=== PATIENT | female | born 1940 | race Caucasian/White ===

== ENCOUNTER 2017-11-06 19:27 | Emergency (ER) | payer OTHER ==
[~2017-11-06 19:27] MED LIST: AMLO5TAB7 PO; ASPI-605 PO; ATEN50TA PO; ATOR10TA GT; LOSA1TAB36 PO
[2017-11-06] MEDS ORDERED: LIDOCAINE 1%-EPI 1:100,000 20 ML VIAL ONE (20:11)
[2017-11-06] MEDS ORDERED: LIDOCAINE 1%-EPI 1:100,000 50 ML VIAL IJ ONE (20:30)
[2017-11-06] MEDS ORDERED: HYDROCODONE/APAP 5/325MG 1 EACH TABLET PO ONE (20:30)
[2017-11-06] MEDS ORDERED: HYDROCODONE/APAP 5/325MG 1 EACH TABLET ONE (20:53)
== END 2017-11-06 22:02 | disposition home or self-care (01) ==
DX: S01.511A Laceration without foreign body of lip, initial encounter (principal); S09.8XXA Other specified injuries of head, initial encounter; I10 Essential (primary) hypertension; K21.9 Gastro-esophageal reflux disease without esophagitis; E11.9 Type 2 diabetes mellitus without complications; Z86.73 Personal history of transient ischemic attack (TIA), and cerebral infarction without residual deficits; Z90.89 Acquired absence of other organs; Z79.82 Long term (current) use of aspirin; W01.0XXA Fall on same level from slipping, tripping and stumbling without subsequent striking against object, initial encounter; Y93.89 Activity, other specified; Y92.89 Other specified places as the place of occurrence of the external cause; Y99.8 Other external cause status

== ENCOUNTER 2019-05-13 16:55 | Inpatient (IN) | payer OTHER ==
[~2019-05-13] VITALS: Ht 147.3 cm; Wt 60.8 kg
[~2019-05-13 16:55] MED LIST changes: -AMLO5TAB7 PO; +AMLO5TAB9 PO
--- NOTE | 2019-05-13 17:00 | NUR ---
BIB [facility] FOR CHEST TIGHTNESS, L ARM PAIN, SOB SINCE YESTERDAY, NAUSEA AND DIZZINESS. TOOK VERTIGO MEDICATION AT 4PM. TOOK 2 BABY ASPIRIN (ONE IN THE MORNING AND ONE IN THE AFTERNOON). TO ER BED 10, HOOKED TO MONITOR, CHANGED TO HOSPITAL GOWN, AWAITING MD SMITH
--- NOTE | 2019-05-13 17:30 | NUR ---
DR SKINNER AT BEDSIDE
[2019-05-13] MEDS ORDERED: ACETAMINOPHEN ES 500 MG TABLET ONE (17:38)
[2019-05-13 17:51] LABS: BASOPHILS % (AUTO) 0.4 % (0.0-2.0); EOSINOPHILS % (AUTO) 1.9 % (0.0-6.0); HEMATOCRIT 39 % (33-45); HEMOGLOBIN 13.5 g/dL (11.5-14.8); LYMPHOCYTES # (AUTO) 2.6 /CMM (0.8-4.8); LYMPHOCYTES % (AUTO) 26.5 % (20.0-44.0); MEAN CORPUSCULAR HGB CONC 34 g/dl (31.0-36.0); MEAN CORPUSCULAR VOLUME 85 fL (82-100); MONOCYTES # (AUTO) 0.6 /CMM (0.1-1.30); MONOCYTES % (AUTO) 6.4 % (2.0-12.0); NEUTROPHILS # (AUTO) 6.3 /CMM (1.8-8.9); NEUTROPHILS % (AUTO) 64.8 % (43.0-81.0); PLATELET COUNT (AUTO) 207 /CMM (150-450); RED BLOOD CELL COUNT(AUTO) 4.61 MIL/uL (4.0-5.2); WHITE BLOOD COUNT (AUTO) 9.8 K/uL (4.3-11.0)
--- NOTE | 2019-05-13 17:52 | NUR ---
POWER GRADER OPERATOR AT BEDSIDE
[2019-05-13] MEDS ORDERED: OMEP20TA5 PO (17:53)
[2019-05-13] MEDS ORDERED: METF-440 PO (17:53)
[2019-05-13] MEDS ORDERED: ACETAMINOPHEN ES 500 MG TABLET PO ONE (18:00)
[2019-05-13 18:04] LABS: CALCIUM, SERUM 9.3 mg/dL (8.5-10.1); POTASSIUM 3.9 mmol/L (3.5-5.1)
[2019-05-13] MEDS ORDERED: ASPIRIN 81 MG TAB.CHEW PO ONE (18:30)
[2019-05-13] MEDS ORDERED: ASPIRIN 81 MG TAB.CHEW ONE (18:44)
--- NOTE | 2019-05-13 19:24 | NUR ---
PT RECEIVED IN BED READING IN HER IPAD. AAOX4. NO RESP DISTRESS NOTED. DAUGHTER AT BEDSIDE
--- NOTE | 2019-05-13 19:38 | NUR ---
PT C/O L CHEST PAIN 09/12 RADIATING TO THE L SHOUDLER. MD MADE AWARE. EKG ORDER RECEIVED NOTED AND CARRIED OUT
--- NOTE | 2019-05-13 19:41 | NUR ---
PT NOTED 94-95% O2 SAT ON RA. PLACED ON O2 VIA NC. MADE AWARE AND APPROVED
--- NOTE | 2019-05-13 20:00 | NUR ---
NURSING SUP GAVE BED 106.
--- NOTE | 2019-05-13 20:09 | NUR ---
DENNIS SOLROIO [facility] CALLED. GIVING VERBAL AUTH.
--- NOTE | 2019-05-13 20:19 | NUR ---
PAINT LINE OPERATOR AT BEDSIDE FOR TROPONIN DRAW
--- NOTE | 2019-05-13 20:37 | NUR ---
RECEIVED TELEPHONE ORDERS FOR PT ADMISSION.
--- NOTE | 2019-05-13 21:05 | NUR ---
REPORT GIVEN TO MARLA BONNER.
--- NOTE | 2019-05-13 21:22 | NUR ---
patient sent to room 106-T to Lisbeth BONNER for GERRY.
[2019-05-13] MEDS ORDERED: IV NS 0.9% 1,000 ML IV ONE (21:30)
--- NOTE | 2019-05-13 21:50 | NUR ---
ADJUNCT PHYSICS INSTRUCTOR OPENING NOTE RECEIVED REPORT BY ANTOINETTE IN ER. RECEIVED PATIENT A/O X4. ARRIVED IN [facility] WITH NO SIGN OR ANY DISTRESS AT THE MOMENT. PATIENT ON THE MONITOR IS SINUS RHYTHM WITH HR OF 60"S.PATIENT WAS ABLE TO AMBULATE FROM THE RNEY TO THE BED WITH NO COMPLICATIONS. SKIN IS INTACT. NO SIGN OF CHEST PAIN AT THE MOMENT. PATIENT HAS A RAC #20 S/L PATENT AND FLUSHING WELL. LUNGS ARE CLEAR AND BOWEL SOUNDS ARE PRESENT. PATIENT HAS BATHROOM PRIVILEGES WITH ASSISTANCE IF NEEDED. DAUGHTER AT BEDSIDE AND ALL SAFETY PRECAUTIONS HAVE BEEN APPLIED/ WILL CONTINUE TO MONITOR.
[2019-05-13] MEDS ORDERED: *INSULIN REGULAR(HUMULIN R)HUM 100 UNIT/ML VIAL SQ PRN (22:00)
[2019-05-13] MEDS ORDERED: DEXTROSE 50%-WATER 50 ML DISP.SYRIN IV PRN (22:00)
[2019-05-13] MEDS ORDERED: ZOLPIDEM TARTRATE 5 MG TABLET PO PRN (22:00)
--- NOTE | 2019-05-13 22:02 | NUR ---
PILE DRIVING TECHNICIAN NOTE CALLED DR. BARRIOS TO CONFIRM DX. AND DIET. CONFIRMED PATIENT'S DX IS CHEST PAIN AND DIET IS NPO XMEDS.
[2019-05-13 22:20] VITALS: BP 110/60
[2019-05-13] MEDS: ATORVASTATIN 10 MG TABLET PO SCH (22:20)
[2019-05-13] MEDS: ACETAMINOPHEN 325 MG TABLET PO PRN (22:20)
[2019-05-13] MEDS: BLOOD SUGAR DIAGNOSTIC 1 EACH STRIP VI SCH (22:26)
[2019-05-14] VITALS: BP 135/83
--- NOTE | 2019-05-14 01:18 | NUR ---
MACHINE RIGGER NOTE RECEIVED CRITICAL LAB FROM [facility] FOR TROPONIN. ELEVATED TO 1.219. DR. BARRIOS MADE AWARE
[2019-05-14 04:00] VITALS: BP 136/83
[2019-05-14 07:01] LABS: BASOPHILS % (AUTO) 0.6 % (0.0-2.0); HEMATOCRIT 38 % (33-45); HEMOGLOBIN 12.9 g/dL (11.5-14.8); LYMPHOCYTES # (AUTO) 2.3 /CMM (0.8-4.8); LYMPHOCYTES % (AUTO) 40.4 % (20.0-44.0); MEAN CORPUSCULAR HGB CONC 34 g/dl (31.0-36.0); MEAN CORPUSCULAR VOLUME 85 fL (82-100); MONOCYTES # (AUTO) 0.4 /CMM (0.1-1.30); MONOCYTES % (AUTO) 6.8 % (2.0-12.0); NEUTROPHILS # (AUTO) 2.9 /CMM (1.8-8.9); NEUTROPHILS % (AUTO) 49.2 % (43.0-81.0); PLATELET COUNT (AUTO) 166 /CMM (150-450); RED BLOOD CELL COUNT(AUTO) 4.43 MIL/uL (4.0-5.2); WHITE BLOOD COUNT (AUTO) 5.8 K/uL (4.3-11.0)
[2019-05-14 07:09] LABS: CALCIUM, SERUM 8.6 mg/dL (8.5-10.1); POTASSIUM 3.9 mmol/L (3.5-5.1)
--- NOTE | 2019-05-14 07:13 | NUR ---
TESTER COMPRESSED GASES CLOSING NOTE PATIENT IN BED WITH NO DISTRESS AND NO COMPLAINTS OF ANY CHEST PAIN. PATIENT HAS ON 2L OF O2 WITH 98% SAT. ALL SAFETY PRECAUTIONS APPLIED. ENDORSED PATIENT TO MORNING SHIFT NURSE FOR CONTINUATIONS OF CARE.
[2019-05-14] MEDS ORDERED: OMEPRAZOLE 20 MG CAPSULE.DR PO SCH (07:30)
[2019-05-14] MEDS: PANTOPRAZOLE 40 MG TABLET.DR PO SCH (07:39)
[2019-05-14] MEDS: BLOOD SUGAR DIAGNOSTIC 1 EACH STRIP VI SCH ×4 (07:39→22:22)
[2019-05-14 08:00] VITALS: BP 150/90
[2019-05-14] MEDS: ASPIRIN 81 MG TAB.CHEW PO SCH (08:27)
[2019-05-14] MEDS: AMLODIPINE BESYLATE 5 MG TABLET PO SCH (08:28)
[2019-05-14] MEDS ORDERED: HEPARIN INFUSION/D5W 500 ML IV PRN (08:30)
[2019-05-14] MEDS: ATENOLOL 50 MG TABLET PO SCH (08:39)
[2019-05-14] MEDS ORDERED: LOSARTAN POTASSIUM 50 MG TABLET PO SCH (09:00)
--- NOTE | 2019-05-14 09:22 | NUR ---
RN NOTE 0715: Received patient, awake, A/Ox4. No c/o chest pain at this time. With RAC PIV intact, IVF infusing as ordered. 0830: Trop level 1.470, made Dr. Major aware, with order to inform Dr. Gonzalez, DC CTCA and will do cardiac cath on Thursday. 899: Dr. Gonzalez in the unit, made aware for order of Heparin drip. 919: S/E by Dr. Gonzalez, with order to DC Heparin and will do Lovenox instead.
[2019-05-14] MEDS ORDERED: HEPARIN SODIUM, PORCINE 5000 UNITS/1 ML VIAL IV ONE (09:30)
[2019-05-14] MEDS: VALSARTAN 80 MG TABLET PO SCH (09:51)
[2019-05-14] MEDS ORDERED: ENOXAPARIN SODIUM 60 MG/0.6 ML DISP.SYRIN SQ SCH (11:30)
[2019-05-14 12:00] VITALS: BP 154/95
[2019-05-14 16:00] VITALS: BP 144/86
[2019-05-14] MEDS: ACETAMINOPHEN 325 MG TABLET PO PRN (17:13)
--- NOTE | 2019-05-14 18:38 | NUR ---
RN NOTE With episode of 2/10 CP at 1750, Tylenol given per request, offered other pain meds but she said she will try Tylenol first. Reassessed at 1640, patient said no more CP.
--- NOTE | 2019-05-14 19:10 | NUR ---
RN OPENING NOTES: PATIENT AWAKE AND VERBALLY RESPONSIVE. A&OX4. NO RESPIRATORY DISTRESS. NO C/O CHEST PAIN AT THIS TIME. ON DELIVERER OUTSIDE SHOWING SR, HR 70s. (R) AC #20 INTACT, PATENT, AND FLUSHING WELL. SALINE LOCKED. SAFETY PRECAUTIONS IMPLEMENTED. BED LOCKED AND IN LOWEST POSITION. CALL LIGHT WITHIN REACH. WILL CONT. TO MONITOR.
[2019-05-14 20:00] VITALS: BP 110/75
[2019-05-14] MEDS: ATORVASTATIN 10 MG TABLET PO SCH (22:11)
[2019-05-15] VITALS: BP_SYST 135; BP_SYST 138; BP_DIAS 76; BP_DIAS 90
[2019-05-15 04:00] VITALS: BP 140/81
--- NOTE | 2019-05-15 07:00 | NUR ---
MIXING MACHINE FEEDER OPENING NOTE RECEIVED PATIENT A/O X4. ON ROOM AIR, NO SIGN OF RESPIRATORY / CARDIAC DISTRESS OR SOB NOTED. PATIENT ON THE MONITOR IS SINUS RHYTHM. PATIENT WAS ABLE TO AMBULATE TO THE BATHROOM. NO COMPLAIN OF CHEST PAIN AT THE MOMENT. PATIENT HAS A RAC #20 S/L PATENT AND FLUSHING WELL. ALL SAFETY PRECAUTIONS IN PLACE, BED LOCKED AND LOW, SIDE RAILS UP X2, CALL LIGHT WITHIN REACH. WILL CONTINUE TO MONITOR.
--- NOTE | 2019-05-15 07:00 | NUR ---
RN CLOSING NOTES: PATIENT AWAKE AND VERBALLY RESPONSIVE. NO RESPIRATORY DISTRESS. NO C/O CHEST PAIN. REQUESTING FOR PRUNE JUICE WITH BREAKFAST AND SHOWER TODAY. ENDORSED TO AM SHIFT NURSE FOR CONTINUITY OF CARE.
[2019-05-15 07:15] LABS: BASOPHILS # (AUTO) 0.1 /CMM (0.0-0.2); BASOPHILS % (AUTO) 0.8 % (0.0-2.0); EOSINOPHILS % (AUTO) 2.6 % (0.0-6.0); HEMATOCRIT 38 % (33-45); HEMOGLOBIN 12.9 g/dL (11.5-14.8); LYMPHOCYTES # (AUTO) 2.2 /CMM (0.8-4.8); LYMPHOCYTES % (AUTO) 35.5 % (20.0-44.0); MEAN CORPUSCULAR HGB CONC 34 g/dl (31.0-36.0); MEAN CORPUSCULAR VOLUME 85 fL (82-100); MONOCYTES # (AUTO) 0.4 /CMM (0.1-1.30); MONOCYTES % (AUTO) 6.9 % (2.0-12.0); NEUTROPHILS # (AUTO) 3.4 /CMM (1.8-8.9); NEUTROPHILS % (AUTO) 54.2 % (43.0-81.0); PLATELET COUNT (AUTO) 183 /CMM (150-450); RED BLOOD CELL COUNT(AUTO) 4.48 MIL/uL (4.0-5.2); WHITE BLOOD COUNT (AUTO) 6.3 K/uL (4.3-11.0)
--- NOTE | 2019-05-15 07:25 | NUR ---
RECEIVED CALL FROM LAB. TROPONIN 1.266 (TRENDING DOWN). CHARGE NURSE MADE AWARE. ACCORDING TH THE CHARGE NURSE SINCE IT IS TRENDING DOWN, THERE IS NO NEED TO CALL DOCTOR.
[2019-05-15 07:40] LABS: ALBUMIN 3.3 g/dL (3.4-5.0); BILIRUBIN,TOTAL 0.6 mg/dL (0.2-1.0); CREATININE 1.2 mg/dL (0.6-1.3); MAGNESIUM 1.6 mg/dL (1.8-2.4); PHOSPHORUS 4.2 mg/dL (2.5-4.9); POTASSIUM 3.6 mmol/L (3.5-5.1); TOTAL PROTEIN, SERUM 6.6 g/dL (6.4-8.2)
[2019-05-15 08:00] VITALS: BP 151/90
[2019-05-15] MEDS: BLOOD SUGAR DIAGNOSTIC 1 EACH STRIP VI SCH ×4 (08:01→21:22)
[2019-05-15] MEDS: VALSARTAN 80 MG TABLET PO SCH (08:20)
[2019-05-15] MEDS: PANTOPRAZOLE 40 MG TABLET.DR PO SCH (08:20)
[2019-05-15] MEDS: ATENOLOL 50 MG TABLET PO SCH (08:21)
[2019-05-15] MEDS: ASPIRIN 81 MG TAB.CHEW PO SCH (08:22)
[2019-05-15] MEDS: AMLODIPINE BESYLATE 5 MG TABLET PO SCH (08:22)
[2019-05-15] MEDS ORDERED: ENOXAPARIN SODIUM 60 MG/0.6 ML DISP.SYRIN SQ SCH (10:00)
[2019-05-15] MEDS: Magnesium 1GM/D5W 100ML PREMIX 100 ML IV SCH ×2 (10:02→10:51)
--- NOTE | 2019-05-15 11:35 | NUR ---
DR MANCILLA AT BEDSIDE. PATIENT WILL HAVE CATH TOMORROW 05/16/19 AT NOON. HOLD LOVENOX AND METFORMIN ON Thursday05/16/19.
[2019-05-15] MEDS: ENOXAPARIN SODIUM 60 MG/0.6 ML DISP.SYRIN SQ SCH (11:54)
[2019-05-15 12:00] VITALS: BP 122/71
[2019-05-15] MEDS: INSULIN REGULAR, HUMAN 100 UNIT/ML 3 ML VIAL SQ PRN (12:42)
--- NOTE | 2019-05-15 13:56 | NUR ---
PATIENT'S DAUGHTER AT BEDSIDE AND WAS INFORMED THAT HER MOM WILL HAVE CATH PROCEDURE TOMORROW AT NOON.
[2019-05-15 16:00] VITALS: BP 117/72
--- NOTE | 2019-05-15 18:50 | NUR ---
RN CLOSING NOTES: PT A/OX4, ON ROOM AIR, NO SIGN OF RESPIRATORY / CARDIAC DISTRESS OR SOB AT THIS TIME. NO C/O CHEST PAIN. ON TELE MONITOR ST 110. NO SIGNIFICANT CHANGE DURING THE SHIFT. WILL BE NPO MIDNIGHT FOR CATH PROCEDURE TOMORROW MORNING. WILL ENDORSE TO PM SHIFT NURSE FOR CONTINUITY OF CARE. Addendum: 05/15/19 at 1902 by EDYTA CURRY RN PATIENT ON TELE MONITOR SR 63.
--- NOTE | 2019-05-15 19:30 | NUR ---
TANKERMAN OPENING NOTE RECEIVED IN BED. A/O X4. ON OXYGEN 2OL/MIN VIA NASAL CANNULA, RESPIRATIONS ARE EVEN AN DUNLABORED. NO S/S SOB NOTED. DENIES PAIN AT THIS TIME. EXTERNAL TELE MONITOR READS SR 62. IN NO APPARENT DISTRESS. IV ACCESS IN LAC PATENT ANSD SL. BED IS LOW AN DLOCKED, HOB ELEVATED 60 DEGREE, SIDE RAILS UP X2. CALL [facility] WITHIN REACH,. WILL CONT TO MONITOR.
[2019-05-15 20:00] VITALS: BP 120/75
[2019-05-15] MEDS: ATORVASTATIN 10 MG TABLET PO SCH (21:21)
[2019-05-15] MEDS: IV NS 0.9% 1,000 ML IV PRN (21:22)
[2019-05-16] VITALS (23 sets, daily range): BP systolic 114–180; BP diastolic 39–100
[2019-05-16] MEDS ORDERED: MORPHINE SULFATE INJ 2 MG/ML DISP.SYRIN IVP ONE (05:00)
--- NOTE | 2019-05-16 05:00 | NUR ---
PREFORM PLATE MAKER NOTE PATIENT EXPERIENCED CHEST PAIN 2/10 RADIATING TO LEFT SHOULDER AND BACK. BP 158/87 HR 60. NOTIFIED MD, TELE PHONE ORDER: 1 MG MORPHINE IVP, ONE TIME NOW. ORDER EAD BACK, NOTED AND CARRIED OUT.
[2019-05-16 06:19] LABS: BASOPHILS % (AUTO) 0.7 % (0.0-2.0); EOSINOPHILS % (AUTO) 3.5 % (0.0-6.0); HEMATOCRIT 38 % (33-45); LYMPHOCYTES # (AUTO) 2.1 /CMM (0.8-4.8); LYMPHOCYTES % (AUTO) 33.2 % (20.0-44.0); MEAN CORPUSCULAR HGB CONC 34 g/dl (31.0-36.0); MEAN CORPUSCULAR VOLUME 85 fL (82-100); MONOCYTES # (AUTO) 0.5 /CMM (0.1-1.30); MONOCYTES % (AUTO) 8.4 % (2.0-12.0); NEUTROPHILS # (AUTO) 3.4 /CMM (1.8-8.9); NEUTROPHILS % (AUTO) 54.2 % (43.0-81.0); PLATELET COUNT (AUTO) 177 /CMM (150-450); RED BLOOD CELL COUNT(AUTO) 4.49 MIL/uL (4.0-5.2); WHITE BLOOD COUNT (AUTO) 6.2 K/uL (4.3-11.0)
[2019-05-16 06:27] LABS: ALBUMIN 3.3 g/dL (3.4-5.0); BILIRUBIN,TOTAL 0.5 mg/dL (0.2-1.0); CALCIUM, SERUM 8.8 mg/dL (8.5-10.1); MAGNESIUM 1.8 mg/dL (1.8-2.4); POTASSIUM 3.6 mmol/L (3.5-5.1); TOTAL PROTEIN, SERUM 6.8 g/dL (6.4-8.2)
--- NOTE | 2019-05-16 06:57 | NUR ---
ENTREPRENEURIAL FINANCE PROFESSOR NOTE LAB CALLED TO REPORT CRITICAL FOR TROPONIN LEVEL 0.913. WILL NOTIFY
--- NOTE | 2019-05-16 07:00 | NUR ---
OVERHEAD CRANE INSPECTOR CLOSING NOTE PT IN BED. A/O X4. ON OXYGEN 2OL/MIN VIA NASAL CANNULA, RESPIRATIONS ARE EVEN AN DUNLABORED. NO S/S SOB NOTED. MANAGED CHEST PAIN WITH 1MG MORPHOINE, PATIENT STATES NO MORE PAIN. EXTERNAL TELE MONITOR READS SR 62 - SB 46. NO DISTRESS NOTED. IV ACCESS IN LAC RUNNING NS @100. BED IS LOW AN DLOCKED, HOB ELEVATED 60 DEGREE, SIDE RAILS UP X2. CALL [facility] WITHIN REACH,. WILL ENDORSE TO NEXT SHIFT
--- NOTE | 2019-05-16 07:10 | NUR ---
TALENT DEVELOPMENT DIRECTOR OPENING NOTE RECEIVED PATIENT A/O X4. ON ROOM AIR, NO SIGN OF RESPIRATORY / CARDIAC DISTRESS OR SOB NOTED. PATIENT ON THE MONITOR IS SINUS RHYTHM 87. NO COMPLAIN OF CHEST PAIN AT THE MOMENT. PATIENT HAS A RAC #20 S/L PATENT AND FLUSHING WELL. NPO SINCE MIDNIGHT FOR CATH PROCEDURE. ALL SAFETY PRECAUTIONS IN PLACE, BED LOCKED AND LOW, SIDE RAILS UP X2, CALL LIGHT WITHIN REACH. WILL CONTINUE TO MONITOR.
[2019-05-16] MEDS: PANTOPRAZOLE 40 MG TABLET.DR PO SCH ×2 (07:30→22:25)
[2019-05-16] MEDS: BLOOD SUGAR DIAGNOSTIC 1 EACH STRIP VI SCH ×4 (08:05→21:42)
[2019-05-16] MEDS: AMLODIPINE BESYLATE 5 MG TABLET PO SCH (09:00)
[2019-05-16] MEDS: ENOXAPARIN SODIUM 60 MG/0.6 ML DISP.SYRIN SQ SCH (09:00)
[2019-05-16] MEDS: ATENOLOL 50 MG TABLET PO SCH (09:00)
[2019-05-16] MEDS: VALSARTAN 80 MG TABLET PO SCH (09:00)
[2019-05-16] MEDS: ASPIRIN 81 MG TAB.CHEW PO SCH (09:00)
--- NOTE | 2019-05-16 09:00 | NUR ---
PATIENT WILL HAVE CATH AT NOON. NPO SINCE MIDNIGHT, MORNING MEDS HOLD.
[2019-05-16] MEDS ORDERED: IV NS 0.9% 50 ML IV ONE (11:05)
[2019-05-16] MEDS ORDERED: IV NS 0.9% 1,000 ML ONE (11:05)
[2019-05-16] MEDS ORDERED: IV SET PRIMARY PUMP SET 1 EA INFUS.SET MC ONE (11:05)
[2019-05-16] MEDS ORDERED: LIDOCAINE HCL/PF 1% 30 ML SDV ONE (11:06)
[2019-05-16] MEDS ORDERED: IODIXANOL 150 ML IV ONE (11:06)
[2019-05-16] MEDS ORDERED: NITROGLYCERIN ICAR 1,000 MCG/10 ML VIAL ICAR ONE (11:06)
[2019-05-16] MEDS ORDERED: VERAPAMIL HCL IV 5 MG/2 ML VIAL ONE (11:06)
--- NOTE | 2019-05-16 11:39 | NUR ---
patient taken to the clinical laboratory director. vs table upon transfer.
[2019-05-16] MEDS ORDERED: HEPARIN SODIUM, PORCINE 5000 UNITS/1 ML VIAL ONE (11:53)
[2019-05-16] MEDS ORDERED: HEPARIN SODIUM, PORCINE 1,000 UNIT/ML VIAL ONE (11:59)
[2019-05-16] MEDS ORDERED: MIDAZOLAM HCL 2 MG/2ML VIAL ONE (12:02)
--- NOTE | 2019-05-16 12:11 | NUR ---
PATIENT TAKEN TO THE ELECTRONIC DRAFTER. NO ACCU CHECK AT THIS TIME.
[2019-05-16] MEDS ORDERED: FENTANYL PF 100MCG/2ML AMPUL ONE (12:36)
--- NOTE | 2019-05-16 13:41 | NUR ---
GOT A CALL FROM RIVER RAFTING GUIDE. PATIENT WAS TRANSFERRED TO THE ICU ROOM #258. BELONGING WILL BE SEND THERE WITH TODD ALEJANDRO.
--- NOTE | 2019-05-16 13:49 | NUR ---
Patient admitted from general laborer. Alert and oriented x 4. Anxious. On RA. O2 sat 96%. SR no ectopy on diagnostic cardiac sonographer. Right wrist TR band compression device on and aligned with green marker balloon 12 inflated, site clean and dry. No signs of bleeding nor hematoma noted. Patient moves fingers. Denies numbness and tingling. With strong left radial pulse on palpation. With left groin (femoral) dry and intact, pulse intact. 0.9% NS @ 100 ml/hr infusing well to the right upper arm PIV line, site no signs of phlebitis/infiltration.
--- NOTE | 2019-05-16 17:00 | NUR ---
Left wrist TR band supposed to be taken off after balloon totally deflated 2 ml every minutes 15 minutes interval, but slight bleeding noted on the site, balloon reinflated with some air. Will continue to observe and deflate air per protocol.
--- NOTE | 2019-05-16 18:37 | NUR ---
Left wrist TR band removed and site applied with Tegaderm. No bleeding noted. With slight bruising noted. IVF 0.9% NS discontinued. Saline locks right upper arm and left AC intact and patent, sites no phlebitis/infiltration noted. Right femoral dressing dry and intact. Pulses intact. SR on the monitor. VS within normal limits. Latest blood sugar 131 mg/dl. Snacks served. Patient awake and alert x 4 but very anxious. Questions answered and plan of care explained, patient verbalized understanding.
--- NOTE | 2019-05-16 19:30 | NUR ---
OIL PROCESSING TECHNICIAN INITIAL SHIFT NOTES RECEIVED PATIENT IN BED, AWAKE, ALERT AND ORIENTED X4, ABLE TO VERBALIZE NEEDS. BREATHING EVEN AND NONLABORED, TOLERATING ROOM AIR WELL, SPO2 WNL, NO S/S OF RESPIRATORY OR ACUTE DISTRESS AT THIS TIME. DENIES ANY CHEST PAIN OR DISCOMFORT. BEDSIDE TELE READS SINUS RHYTHM, HR 72 BPM. LEFT WRIST WITH TEGADERM DRESSING THAT IS DRY AND INTACT, S/P TR BAND. RIGHT FEMORAL DRESSING INTACT, NO BLEEDING NOTED AT SITE. PLAN OF CARE DISCUSSED WITH THE PATIENT, WHOM VERBALIZES UNDERSTANDING AT THIS TIME. WILL CLOSELY MONITOR THE PATIENT
--- NOTE | 2019-05-16 20:25 | NUR ---
TWINE REELING MACHINE OPERATOR NOTES RECEIVED CALL FROM BIN SAMSON CM, REGARDING TRANSFER TO [facility], ROOM 607-A. [phone]. AMBULANCE, [place], ETA 2130
--- NOTE | 2019-05-16 20:29 | NUR ---
SKULL CHOPPER NOTES REQUEST FOR COPIES OF IMAGING MADE, RADIOLOGY DEPT CALLED
--- NOTE | 2019-05-16 20:45 | NUR ---
BRIDGE CLUB MANAGER NOTES [facility] PHONE NUMBER GIVEN TO PATIENT'S DAUGHTER YOKO PER REQUEST.
--- NOTE | 2019-05-16 21:07 | NUR ---
BAKER NOTES RECEIVED CALL FROM BIN SAMSON CM. [phone]. PER BIN, TRANSFER WILL BE CANCELED FOR TONIGHT, PATIENT NO LONGER GOING TO [facility], AND WILL ATTEMPT TRANSFER TO [facility] SOMETIME TOMORROW, 05/17/19. CHARGE NURSE NOTIFIED, BREAKFAST AND ROOM ATTENDANT NOTIFIED, PATIENT AND GRANDSON AWARE. WILL CONTINUE TO CLOSELY MONITOR. Addendum: 05/17/19 at 0213 by CAROLYN MORTON RN ADDENDUM TRANSFER HELD DUE TO PATIENT AND FAMILY REFUSAL FOR [facility]. [facility] ONLY
--- NOTE | 2019-05-16 21:18 | NUR ---
CONSERVATION SPECIALIST NOTES CALLED AND SPOKE TO DR BARRIOS REGARDING LATEST UPDATE WITH TRANSFER , HELD AT THIS TIME PER PATIENT AND FAMILY REQUEST, WHOM REQUEST TO BE TRANSFERRED TO [facility]. RISKS AND CONSEQUENCES EXPLAINED IN DETAIL TO PATIENT AND FAMILY MEMBERS, WHOM VERBALIZE UNDERSTANDING, BUT STILL STONGLY INSIST ON TRANSFER TO [facility] ONLY. REGAL MDS COORDINATOR BIN YOUNG.
[2019-05-16] MEDS: IV NS 0.9% 1,000 ML IV PRN (21:42)
[2019-05-16] MEDS: ATORVASTATIN 10 MG TABLET PO SCH (21:42)
--- NOTE | 2019-05-16 21:45 | NUR ---
AMBULATORY CARE NOTES BLOOD GLUCOSE LEVEL = 138. PER SLIDING SCALE, 2 UNITS TO BE ADMINISTERED, HOWEVER, PATIENT REFUSED. EXPLAINED RISKS AND CONSEQUENCES OF REFUSING MEDICATION REGIMEN. PATIENT VERBALIZES UNDERSTANDING, BUT STILL STRONGLY REFUSES.
--- NOTE | 2019-05-16 22:05 | NUR ---
LACQUER MAKER NOTES PATIENT WITH COMPLAINT OF NAUSEA. DR BARRIOS MADE AWARE, WITH NEW ORDER FOR ZOFRAN 4MG IV Q4H PRN.
[2019-05-16] MEDS ORDERED: ONDANSETRON HCL/PF 4 MG/2 ML VIAL IV PRN (22:30)
[2019-05-17] VITALS (12 sets, daily range): BP systolic 93–134; BP diastolic 40–78
--- NOTE | 2019-05-17 04:00 | NUR ---
SPECIAL EFFECTS PERSON NOTES PATIENT RESTING IN BED, NO ACUTE DISTRESS. DENIES CHEST PAIN. WILL CONTINUE TO MONITOR
[2019-05-17 04:21] LABS: BASOPHILS % (AUTO) 0.5 % (0.0-2.0); EOSINOPHILS % (AUTO) 2.1 % (0.0-6.0); HEMATOCRIT 35 % (33-45); HEMOGLOBIN 12.2 g/dL (11.5-14.8); MEAN CORPUSCULAR HGB CONC 35 g/dl (31.0-36.0); MEAN CORPUSCULAR VOLUME 85 fL (82-100); MONOCYTES # (AUTO) 0.6 /CMM (0.1-1.30); NEUTROPHILS # (AUTO) 4.3 /CMM (1.8-8.9); NEUTROPHILS % (AUTO) 61.4 % (43.0-81.0); PLATELET COUNT (AUTO) 175 /CMM (150-450); WHITE BLOOD COUNT (AUTO) 7.1 K/uL (4.3-11.0)
[2019-05-17 04:40] LABS: ALBUMIN 3.1 g/dL (3.4-5.0); BILIRUBIN,TOTAL 0.6 mg/dL (0.2-1.0); CALCIUM, SERUM 8.9 mg/dL (8.5-10.1); CREATININE 0.9 mg/dL (0.6-1.3); MAGNESIUM 1.7 mg/dL (1.8-2.4); PHOSPHORUS 3.7 mg/dL (2.5-4.9); POTASSIUM 3.8 mmol/L (3.5-5.1); TOTAL PROTEIN, SERUM 6.3 g/dL (6.4-8.2)
--- NOTE | 2019-05-17 07:00 | NUR ---
INSTRUMENTAL MUSICIAN CLOSING NOTES PATIENT RESTING IN BED, NO ACUTE CHANGES NOTED THROUGHOUT SHIFT. NO EPISODE OF CP OR SOB THROUGHOUT SHIFT. AWAITING TRANSFER TO [facility] FOR HIGHER LEVEL OF CARE. WILL ENDORSE THE PATIENT TO THE AM SHIFT NURSE FOR CONTINUITY OF CARE
--- NOTE | 2019-05-17 07:20 | NUR ---
AUXILIARY POWER EQUIPMENT OPERATOR notes RECEIVED PATIENT AWAKE ALERT AND ORIENTED IN BED, RESPONDS APPROPRIATELY TO QUESTIONS, ABLE TO MAKE NEEDS KNOWN. RESPIRATIONS EVEN AND UNLABORED ON 2LPM OF OXYGEN VIA NASAL CANNULA. IV ACCESS TO RAC AND LAC PATENT AND INTACT NO REDNESS OR INFILTRATION NOTED. ALL SAFETY MEASURES IN PLACE, PATIENT KEPT CLEAN AND DRY. CALL LIGHT WITHIN EASY REACH WILL CONTINUE TO MONITOR FOR ANY CHANGES
[2019-05-17] MEDS: BLOOD SUGAR DIAGNOSTIC 1 EACH STRIP VI SCH ×2 (08:20→12:25)
[2019-05-17] MEDS: INSULIN REGULAR, HUMAN 100 UNIT/ML 3 ML VIAL SQ PRN ×2 (08:21→12:25)
[2019-05-17] MEDS ORDERED: Magnesium 1GM/D5W 100ML PREMIX 100 ML IV SCH (08:30)
[2019-05-17] MEDS: IV NS 0.9% 1,000 ML IV PRN (08:39)
[2019-05-17] MEDS: Magnesium 1GM/D5W 100ML PREMIX 100 ML IV SCH ×2 (08:39→11:01)
[2019-05-17] MEDS: AMLODIPINE BESYLATE 5 MG TABLET PO SCH (08:40)
[2019-05-17] MEDS: VALSARTAN 80 MG TABLET PO SCH (08:40)
[2019-05-17] MEDS: ASPIRIN 81 MG TAB.CHEW PO SCH (08:40)
[2019-05-17] MEDS: ATENOLOL 50 MG TABLET PO SCH (08:41)
[2019-05-17] MEDS: ENOXAPARIN SODIUM 60 MG/0.6 ML DISP.SYRIN SQ SCH (08:42)
--- NOTE | 2019-05-17 09:30 | NUR ---
RN NOTES DR. BARRIOS AT BEDSIDE PER OKAY TO GIVE AM MEDS INCLUDING LOVENOX TODAY, PER MD AWAIT TRANSFER TO [place] AWAITING FOR BED
--- NOTE | 2019-05-17 16:00 | NUR ---
ICU Discharge notes PATIENT AWAKE ALERT AND ORIENTED, IN BED, RESPONDS APPROPRIATELY TO QUESTIONS, ABLE TO MAKE NEEDS KNOWN. RESPIRATIONS EVEN AND UNLABORED ON ROOM AIR. IV ACCESS TO LAC PATENT AND INTACT NO REDNESS OR INFILTRATION NOTED. ALL SAFETY MEASURES IN PLACE, PATIENT KEPT CLEAN AND DRY. PATIENT BEING PREPARED TO BE DISCHARGED AND [facility]. REPORT FOR CONTINUITY OF CARE GIVEN TO AMBULANCE TRANSPORT AND BAL BONNER ALL PAPERWORK AND COPIES OF RADIOLOGY REPORTS IN DISC FORM PROVIDED. DAUGHTER JESSE NOTIFIED OF DISCHARGE. PATIENT DISCHARGED IN STABLE CONDITION ORDERED
--- NOTE | 2019-05-17 16:00 | NUR ---
KAILEY notes patient being prepared for transfer to outside hospital Addendum: 05/17/19 at 1606 by PADMAJA BENNETT RN Amended: Links added.
== END 2019-05-17 16:35 | DRG 281 ==
LOC: ER 16:56 → TELE1 20:50 → ICU 05-16 13:55
PROVIDERS: ADMIT Internal Medicine; ATTEND Internal Medicine
PROC: 4A023N7 Measurement of Cardiac Sampling and Pressure, Left Heart, Percutaneous Approach (ICD-10-PCS; principal; 2019-05-12)
PROC: B41FYZZ Fluoroscopy of Right Lower Extremity Arteries using Other Contrast (ICD-10-PCS; principal; 2019-05-12)
PROC: B211YZZ Fluoroscopy of Multiple Coronary Arteries using Other Contrast (ICD-10-PCS; principal; 2019-05-12)
DX: I21.4 Non-ST elevation (NSTEMI) myocardial infarction (principal); D68.59 Other primary thrombophilia; I10 Essential (primary) hypertension; E11.9 Type 2 diabetes mellitus without complications; Z86.73 Personal history of transient ischemic attack (TIA), and cerebral infarction without residual deficits; Z82.49 Family history of ischemic heart disease and other diseases of the circulatory system; Z79.899 Other long term (current) drug therapy; I25.10 Atherosclerotic heart disease of native coronary artery without angina pectoris; I70.0 Atherosclerosis of aorta
CPT/HCPCS: 36415; 71045-TC; 80048-TC; 80053-TC; 80061-TC; 82962-TC; 83735-TC; 83880; 84100-TC; 84484-TC; 85025-TC; 85378-TC; 85730-TC; 87081-TC; 93307-TC; 93452; 94760-TC; 94799-TC; A4216; C1887; C1894; G0378; J1644; J1650; J1815; J2250; J2270; J2405; J3010; J3475; J3490; J7030; J7040; Q9967